=== PATIENT | male | born 1965 | race Caucasian/White ===

== ENCOUNTER → 2019-09-25 10:28 | Outpatient (BNVA) | payer MEDICARE, SELFPAY | PROVIDERS: Family Provider Nurse Practitioner Family; PCP Nurse Practitioner Family; Visit Provider Nurse Practitioner | DX: I10 Essential (primary) hypertension (principal); E55.9 Vitamin D deficiency, unspecified; Z12.5 Encounter for screening for malignant neoplasm of prostate; E78.5 Hyperlipidemia, unspecified | CPT/HCPCS: 80053; 80061; 81000; 82306; 85025; G0103 ==

== ENCOUNTER → 2019-10-20 09:23 | Outpatient (BNVA) | payer MEDICARE, SELFPAY | PROVIDERS: Family Provider Nurse Practitioner Family; PCP Nurse Practitioner Family; Visit Provider Nurse Practitioner | DX: E88.81 Metabolic syndrome and other insulin resistance (principal); R73.9 Hyperglycemia, unspecified | CPT/HCPCS: 83036 ==

== ENCOUNTER → 2019-10-30 09:32 | Outpatient (BNVA) | payer MEDICARE, SELFPAY | PROVIDERS: Family Provider Nurse Practitioner Family; PCP Nurse Practitioner Family; Visit Provider Urology | DX: R97.20 Elevated prostate specific antigen [PSA] (principal); G89.29 Other chronic pain | CPT/HCPCS: 81001; 84153 ==

== ENCOUNTER → 2020-02-02 08:20 | Outpatient (BNVA) | payer MEDICARE, SELFPAY | PROVIDERS: Family Provider Nurse Practitioner Family; PCP Nurse Practitioner Family; Visit Provider Urology | DX: R97.20 Elevated prostate specific antigen [PSA] (principal) | CPT/HCPCS: 81003; 84153 ==

== ENCOUNTER → 2020-05-10 13:52 | Outpatient (BNVA) | payer MEDICARE, SELFPAY | PROVIDERS: Family Provider Nurse Practitioner Family; PCP Nurse Practitioner Family; Visit Provider Nurse Practitioner Family | DX: E78.5 Hyperlipidemia, unspecified (principal); M25.512 Pain in left shoulder; G89.29 Other chronic pain; E55.9 Vitamin D deficiency, unspecified; Z12.11 Encounter for screening for malignant neoplasm of colon; R73.9 Hyperglycemia, unspecified; M19.90 Unspecified osteoarthritis, unspecified site; E88.81 Metabolic syndrome and other insulin resistance | CPT/HCPCS: 80053; 80061; 82306; 83036; 84443; 85025 ==

== ENCOUNTER → 2020-05-11 14:45 | Outpatient (BNVA) | payer MEDICARE, SELFPAY | PROVIDERS: Family Provider Nurse Practitioner Family; PCP Nurse Practitioner Family; Visit Provider Nurse Practitioner Family | DX: G89.29 Other chronic pain (principal); M25.512 Pain in left shoulder; M19.012 Primary osteoarthritis, left shoulder | CPT/HCPCS: 73030 ==

== ENCOUNTER 2020-05-30 15:25 | Outpatient (CLI) | payer MEDICARE, SELFPAY ==
--- NOTE | 2020-05-30 15:48 | MR_ITS ---
WS: [id number] MRI LEFT SHOULDER HISTORY: M25.512 - Pain in left shoulder COMPARISON: Shoulder radiograph 05/11/2020 TECHNIQUE: Multiplanar sequences of the shoulder joint are submitted. Moderate AC joint arthritis. Joint space narrowing with subchondral cystic changes and destruction of the cortex along the joint lines. Osteophytes extend by 5.3 mm inferior towards the supraspinatus mu scle. There is an additional 3 mm osteophyte along the distal undersurface of the acromion without si gnificant encroachment or impingement. No significant subacromial or subdeltoid bursal fluid distenti on. No os acromion. Biceps tendon remains at the bicipital groove. There is increase fluid in the bic eps tendon sheath. Moderate osteophytic ridging surrounding the humeral head with narrowing of the glenohumeral joint. T here is a small amount of fluid in the glenohumeral joint and axillary pouch. Partial tear involving the articular surface of the distal supraspinatus tendon with adjacent tendinopathy. The remaining te ndons are intact. Subscapularis tendon is being displaced by a complex mass with various signal inten sity in the spinoglenoid notch. Complex mass measures 2.4 x 2.8 cm. There is adjacent anterior labral tear. There is additional abnormal signal in the posterior labrum. Superior labrum is also torn. MR/MR shoulder LT wo con* [id number] IMPRESSION: 1. Moderate AC joint osteoarthritis with a 5.3 mm osteophyte extending towards the supraspinatus muscle with mild encroachment. 2. Complex mass measuring 2.4 x 2.8 cm in the spinoglenoid notch with displace ment of the subscapularis tendon. Favor this is probably a complex paralabral c yst or ganglion. 3. Moderate to severe osteoarthritis involving the glenohumeral joint with ost eophytic ridging around the humeral head. 4. Significant tears involving the labrum. Anterior, posterior superior labral tears. 5. Partial tear along the distal articular surface supraspinatus tendon.
== END 2020-05-30 15:26 | disposition home or self-care (01) ==
LOC: RADWPI 15:35
PROVIDERS: PCP Nurse Practitioner Family; Visit Provider Nurse Practitioner Family
DX: M75.102 Unspecified rotator cuff tear or rupture of left shoulder, not specified as traumatic (principal); S43.432A Superior glenoid labrum lesion of left shoulder, initial encounter; M19.012 Primary osteoarthritis, left shoulder; X58.XXXA Exposure to other specified factors, initial encounter
CPT/HCPCS: 73221

== ENCOUNTER 2020-06-29 11:19 | Day surgery (SDC) | payer MEDICARE, SELFPAY ==
[2020-06-28 14:47] VITALS: BMI 26.4
[2020-06-29] MEDS: sodium chloride 0.9% 1,000 ML 30 ML IV (12:00)
[2020-06-29 12:17] VITALS: BP 133/87; PULSE 98; RESP 18; TEMP 37; O2SAT 99
--- NOTE | 2020-06-29 12:32 | P.HP_ITS ---
Same Day Surgery H&P Indication for Procedure/HPI DATE OF PROCEDURE: June 29, 2020 CHIEF COMPLAINT/INDICATIONFOR SURGICAL PROCEDURE: Screening colonoscopy PREOP DIAGNOSIS: SCREENIG COLONOSCOPY PLANNED PROCEDRUE: Operation Date: 06/29/20 12:45 Proposed Procedures p Colonoscopy 03641 Z12.11(Not Applicable) - Anirudh Burger MD This is a pleasant 55 years old gentleman presents to my practice for screening colonoscopy. Patient never had one before and he does not have history of colon cancer or bleeding per rectum or nonintentional weight loss. ROS All systems have been reviewed negative except as per the above or per problem list Medications/Allergies* Home Medications Medication Instructions Recorded Confirmed Type vitamin E 200 unit capsule 200 unit PO DAILY 02/02/20 06/28/20 History zinc 50 tab PO DAILY 06/28/20 06/28/20 History Allergies/Adverse Reactions Allergy/AdvReac Type Severity Reaction Status Date / Time No Known Allergies Allergy Verified 06/29/20 12:33 Pertinent History/Comorbid Conditions* Medical History (Updated 10/30/19 @ 15:03 by Guero Joya MD) Current smoker Dyslipidemia Elevated PSA Essential (primary) hypertension Metabolic syndrome Vitamin D deficiency Surgical History (Updated 09/25/19 @ 10:25 by BRYCE TraylorC) History of knee surgery left x4 History of skin cancer Chest squamous cell Family History (Updated 09/24/19 @ 16:54 by POLO Flores) Diabetes Cancer Social History Smoking and tobacco status: current every day smoker Second hand smoke exposure: Yes Smoking risk assessment/counseling performed?: Yes Alcohol intake: never Desire information about alcohol rehabilitation?: No Counseling given: No Desire information about substance/drug rehabilitation?: No Counseling given: No Adopted: No Caregiver/support person: No Lives independently: Yes Household members: none Housing: House Marital status: Single Number of children: 4 service: No Current occupational status: disabled History of recent travel: No Current gender identity: Male Pertinent Exam Findings alert, oriented x 3, clear to auscultation bilaterally, regular rate & rhythm and procedure specific exam findings (Abdominal examination nontender nondistended soft) Recommendations Surgery/Procedure today (Colonoscopy with possible biopsy and possible polypectomy) Other Plans: Plan of care; After thorough history and physical examination and reviewing the chart, plan to perform screening colonoscopy. I discussed with the patient in details the risks,benefits,alternatives and indications.The risk of aspiration, bleeding, soft tissue injury, perforation of the colon and other potential concomitant complications were explained to the patient in details,also the potential need for Laproscoy/Laparotomy to repair any related complications including but not limited to colectomy and or Closotomy.The patient understood this well and did agree to proceed. Rationale was carefully and clearly discussed with the patient.Appropriate informed consent have been reviewed and signed All questions have been answered and all concerns have been addressed to patient's satisfaction. Verbal and written Instructions were given to the patient for colonoscopy prep Coding Level of Care Code Acute [employer] Specialist for Klaus Walker
[2020-06-29 13:41] VITALS: BP 117/81; PULSE 84; RESP 18; TEMP 37; O2SAT 95
[2020-06-29 13:55] VITALS: BP 138/97; PULSE 87; RESP 18; O2SAT 98
--- NOTE | 2020-06-29 14:29 | ANE.PACU2 ---
Inpatient post-anesthesia follow up: Airway intact: Yes Vital signs: Temperature 98.6 F Pulse Rate 87 Respiratory Rate 18 Blood Pressure 138/97 Pulse Oximetry 98 Oxygen Delivery Me thod Room Air Oxygen Flow Rate Fraction of Inspir ed Oxygen Hydration adequate: Yes Nausea and vomiting: No Pain level: 1 Mental status: Baseline
== END 2020-06-29 14:11 | disposition home or self-care (01) ==
PROVIDERS: PCP Nurse Practitioner Family; Visit Provider Surgery
PROC: 0DJD8ZZ Inspection of Lower Intestinal Tract, Via Natural or Artificial Opening Endoscopic (ICD-10-PCS; CPT 45378; principal; 2020-06-29 12:45)
DX: Z12.11 Encounter for screening for malignant neoplasm of colon (principal); F17.210 Nicotine dependence, cigarettes, uncomplicated; E78.5 Hyperlipidemia, unspecified; E55.9 Vitamin D deficiency, unspecified; Z83.3 Family history of diabetes mellitus
CPT/HCPCS: 96360; 96361; G0121; J2704; J7030

== ENCOUNTER → 2020-08-02 12:59 | Outpatient (BNVA) | payer MEDICARE, SELFPAY | PROVIDERS: PCP Nurse Practitioner Family; Visit Provider Urology | DX: R97.20 Elevated prostate specific antigen [PSA] (principal) | CPT/HCPCS: 81003; 84153 ==